=== PATIENT | female | born 1980 | race Caucasian/White ===

== ENCOUNTER 2021-06-08 12:22 | Emergency (ER) | payer BC ==
[~2021-06-08] VITALS: Ht 149.9 cm; Wt 96.0 kg
[2021-06-08 12:41] VITALS: BP 126/93
[2021-06-08] MEDS ORDERED: HYDROcodone/acetaminophen 5mg/325mg tablet PO ONE (15:35)
[2021-06-08] MEDS ORDERED: CEPH250T PO (15:36)
[2021-06-08] MEDS ORDERED: HYDR-3965 PO (15:36)
[2021-06-08] MEDS ORDERED: ONDA4TAB6 PO (15:36)
== END 2021-06-08 16:53 | disposition home or self-care (01) ==
LOC: ER 12:22
DX: S62.391A Other fracture of second metacarpal bone, left hand, initial encounter for closed fracture (principal); Z88.0 Allergy status to penicillin; V00.131A Fall from skateboard, initial encounter; Y93.89 Activity, other specified; Y92.89 Other specified places as the place of occurrence of the external cause; Y99.8 Other external cause status
CPT/HCPCS: 73630; 99283